=== PATIENT | female | born 1960 | race Caucasian/White ===

== ENCOUNTER 2017-07-01 09:27 | Outpatient (CLI) | payer OTHER | END 2017-07-01 17:00 | disposition home or self-care (01) | LOC: TOM 09:27 | DX: K57.32 Diverticulitis of large intestine without perforation or abscess without bleeding (principal); R10.32 Left lower quadrant pain; R19.4 Change in bowel habit; R19.5 Other fecal abnormalities ==

== ENCOUNTER 2025-01-07 18:22 | Emergency (ER) | payer OTHER ==
[~2025-01-07] VITALS: Ht 157.5 cm; Wt 82.6 kg
[2025-01-07] MEDS ORDERED: CRESTOR40 MG (18:44)
[2025-01-07] MEDS ORDERED: ZESTRIL20 MG (18:44)
[2025-01-07] MEDS ORDERED: ZETIA10 MG (18:44)
[2025-01-07] MEDS ORDERED: CIPROFLOXACIN IN 5 % DEXTROSE 400 MG/200 ML PIGGYBAG IV ONE ×2 (19:15→19:54)
[2025-01-07] MEDS ORDERED: MORPHINE SULFATE 4 MG/ML VIAL IV ONE (19:15)
[2025-01-07] MEDS ORDERED: ONDANSETRON HCL 2 MG/ML VIAL IV ONE (19:15)
[2025-01-07] MEDS ORDERED: 0.9 % SODIUM CHLORIDE 1,000 ML IV ONE (19:15)
[2025-01-07] MEDS ORDERED: KETOROLAC TROMETHAMINE 15 MG VIAL IV ONE (19:15)
[2025-01-07] MEDS ORDERED: FAMOtidine 10 MG/ML (4ML VIAL) IV ONE (19:15)
[2025-01-07] MEDS ORDERED: KETOROLAC TROMETHAMINE 30 MG VIAL ONE (19:53)
[2025-01-07] MEDS ORDERED: ONDANSETRON HCL 2 MG/ML VIAL ONE (19:54)
[2025-01-07] MEDS ORDERED: FAMOTIDINE/PF 20 MG/2 ML VIAL ONE (19:54)
[2025-01-07 20:03] LABS: BASO % 0.4 % (0.1-1.2); EOS # 0.12 (0.04-0.54); EOS % 1.8 % (0.7-7.0); LYMPH # 1.93 (1.18-3.74); LYMPH % 28.3 % (19.3-53.1); MEAN PLATELET VOLUME 9.40 fl (9.4-12.4); MONO # 0.48 (0.24-0.82); MONO % 7.0 % (4.7-12.5); NEUT # 4.26 (1.56-6.13); NEUT % 62.4 % (34.0-71.1); RED CELL DISTRIBUTION WIDTH 12.5 % (11.6-14.4)
[2025-01-07 20:24] LABS: INR 1.02
[2025-01-07 20:28] LABS: ALT/SGPT 43.0 U/L (12-78); AST/SGOT 18.0 U/L (15-37); BILIRUBIN TOTAL 0.42 mg/dL (0.3-1.2); BUN CREA RATIO 16.0 (7.0-25.0); CREATININE SERUM 0.8 mg/dL (0.55-1.02); GFR 72.44; GLOBULINA 3.7 G/DL (2.4-3.5); GLUCOSE FASTING 105.0 mg/dL (65-100); OSMOLALITY SERUM 284.0 MOSM/KG (275-295)
[2025-01-07] MEDS ORDERED: KETO10TA2 PO (23:20)
[2025-01-07] MEDS ORDERED: PEPCID AC20 MG PO (23:20)
[2025-01-07] MEDS ORDERED: PROBIOTIC1 EAC2 PO (23:20)
[2025-01-07] MEDS ORDERED: ZOFRAN8 MG PO (23:20)
[2025-01-08 00:45] LABS: URINE APPEARANCE Clear; URINE BILIRRUBIN Negative (NEGATIVE); URINE BLOOD Negative; URINE COLOR Yellow; URINE GLUCOSE Negative (NEGATIVE); URINE KETONE 15 (NEGATIVE); URINE LEUKOCYTE Small; URINE NITRATE Negative; URINE PROTEIN Negative (NEGATIVE); URINE UROBILINOGEN 0.2 E.U./dl
[2025-01-08 00:49] LABS: URINE BACTERIA 36.0 uL (0.0-1933); URINE EPITHELIAL CELLS 14.1 uL (0.0-38.8); URINE RBC 4.2 uL (0.0-20.8); URINE WBC 24.9 uL (0.0-23.2)
[2025-01-08 01:03] LABS: URINE CAST 1.02 uL (0.0-1.40)
== END 2025-01-08 00:18 | disposition home or self-care (01) ==
LOC: ER 18:22
PROVIDERS: General Practice
DX: K57.32 Diverticulitis of large intestine without perforation or abscess without bleeding (principal); R10.9 Unspecified abdominal pain; R11.2 Nausea with vomiting, unspecified; N83.292 Other ovarian cyst, left side